=== PATIENT | female | born 1990 | race Two or more races ===

== ENCOUNTER 2018-08-22 19:13 | Inpatient (IN) | payer OTHER ==
[~2018-08-22] VITALS: Ht 165.1 cm; Wt 89.8 kg
[2018-08-22] MEDS ORDERED: PRENATAL 19 TA1 EACH PO (20:50)
== END 2018-08-25 13:27 | DRG 807 ==
LOC: LDR 19:13 → OB/GYN 19:13 → LDR 23:00 → OB/GYN 23:19
PROC: 10E0XZZ Delivery of Products of Conception, External Approach (ICD-10-PCS; principal; 2018-08-22)
PROC: 0KQM0ZZ Repair Perineum Muscle, Open Approach (ICD-10-PCS; 2018-08-22)
PROC: 4A1HXCZ Monitoring of Products of Conception, Cardiac Rate, External Approach (ICD-10-PCS; 2018-08-22)
DX: O70.1 Second degree perineal laceration during delivery (principal); Z37.0 Single live birth; Z3A.37 37 weeks gestation of pregnancy

== ENCOUNTER 2020-06-27 07:28 | Day surgery (SDC) | payer OTHER ==
[~2020-06-27 07:28] MED LIST: PRENATAL 19 TA1 EACH PO
== END 2020-06-27 22:25 | disposition home or self-care (01) ==
LOC: CIR.AMB 07:28
PROVIDERS: ATTEND Specialist
DX: N87.1 Moderate cervical dysplasia (principal)